=== PATIENT | male | born 1940 | race Caucasian/White ===

== ENCOUNTER 2022-12-02 10:58 | Emergency (ER) | payer MEDICARE, OTHER ==
[2022-12-02 11:33] LABS: BASOPHILS PERCENT AUTO 0.5 % (0.1-1.3); EOSINOPHILS ABSOLUTE AUTO 0.11 K/uL (0.00-0.40); EOSINOPHILS PERCENT AUTO 2.8 % (0.0-5.4); HEMOGLOBIN 14.8 g/dL (12.9-16.9); IMMATURE GRAN PERCENT AUTO 0.3 % (0.0-0.7); LYMPHOCYTES PERCENT AUTO 35.9 % (11.4-47.7); MEAN CORPUSCULAR HEMOGLOBIN 31.6 pg (31.6-35.5); MEAN CORPUSCULAR HGB CONC 33.6 g/dL (31.6-35.5); MONOCYTES PERCENT AUTO 10.3 % (3.3-12.6); NEUTROPHILS ABSOLUTE AUTO 1.96 K/uL (1.0-7.6); NEUTROPHILS PERCENT AUTO 50.2 % (40.0-78.1); PLATELET COUNT,PLT 134 K/uL (130-375); RED BLOOD CELL COUNT 4.68 M/uL (4.14-5.76); WHITE BLOOD CELL COUNT,WBC 3.9 K/uL (3.2-11.0)
[2022-12-02 11:34] LABS: BASOPHILS ABSOLUTE AUTO 0.02 K/uL (0.00-0.10); IMMATURE GRAN ABSOLUTE AUTO 0.01 K/uL (0.00-0.23)
[2022-12-02 11:58] LABS: CALCIUM 8.8 mg/dL (8.5-10.1); CREATININE 1.1 mg/dL (0.8-1.3); EST CRCL DRUG DOSING (CG) 54.06 mL/min; POTASSIUM,K 3.4 mmol/L (3.6-5.2)
[2022-12-02 12:01] LABS: ANION GAP 7.4 mmol/L (5.0-14.0)
== END 2022-12-02 12:45 | disposition home or self-care (01) ==
LOC: JP.ED 10:58
DX: I49.1 Atrial premature depolarization (principal); I10 Essential (primary) hypertension; K21.9 Gastro-esophageal reflux disease without esophagitis; Z79.899 Other long term (current) drug therapy
CPT/HCPCS: 36415; 80048; 84484; 85025; 93005; 99285